=== PATIENT | female | born 1935 | race Caucasian/White ===

== ENCOUNTER 2017-08-29 11:01 | Outpatient (CLI) | payer MEDICARE | END 2017-08-29 11:02 | disposition home or self-care (01) | LOC: BICMAMMO 11:01 | PROVIDERS: ATTEND Obstetrics & Gynecology | DX: Z12.31 Encounter for screening mammogram for malignant neoplasm of breast (principal) | CPT/HCPCS: 77063; 77067 ==

== ENCOUNTER 2018-01-20 08:43 | Outpatient (CLI) | payer MEDICARE ==
--- NOTE | 2018-01-20 11:11 | RAD ---
FOUR VIEWS LUMBAR SPINE: INDICATION: History of post laminectomy syndrome. COMPARISON: None. FINDINGS: There is a 1.2 cm stone overlying the mid to inferior pole of the left kidney. There are laminectomy changes at L5 and L4. There is levoscoliosis of the lumbar spine. There is anterolisthesis of L4 o n L5. There is advanced degenerative disk disease at L5-S1. There is moderate facet osteoarthrosis at L4-5 and L5-S1. There are prominent vascular calcifications involving the abdominal aorta. Ther e is some reduction in the anterolisthesis of L4 and L5 with extension. This does not appear to acce ntuate with flexion. IMPRESSION: 1. Moderate spondylosis of the cervical spine. Degenerative levoscoliosis of the lumbar spine. 2. Grade I anterolisthesis of L4 and L5 that appears slightly reduced with extension but is not acce ntuated with flexion. 3. Left nephrolithiasis. 4. Postoperative change. POS: [facility]
== END 2018-01-20 08:44 | disposition home or self-care (01) ==
LOC: RAD 08:43
PROVIDERS: ATTEND Nurse Practitioner Family
DX: M47.816 Spondylosis without myelopathy or radiculopathy, lumbar region (principal); M96.1 Postlaminectomy syndrome, not elsewhere classified; M43.16 Spondylolisthesis, lumbar region; M41.9 Scoliosis, unspecified; N20.0 Calculus of kidney; Z98.890 Other specified postprocedural states
CPT/HCPCS: 72110

== ENCOUNTER 2018-02-06 07:48 | Outpatient (CLI) | payer MEDICARE ==
--- NOTE | 2018-02-06 08:43 | RAD ---
LUMBAR SPINE THREE VIEWS: HISTORY: Low back pain. Prior surgery. COMPARISON: 01/20/2018 FINDINGS: Lateral views include neutral, flexion, and extension views. Vertebral body heights are maintained. Minimal retrolisthesis and disk space narrowing are present at the L1-L2 level with gas disk phenome non. Disk space narrowing and minimal degenerative retrolisthesis at the L2-L3 level. Disk space na rrowing at the L3-L4 level. There is 0.4 cm spondylolisthesis at the L4-L5 level with disk space narrowing. There is disk space narrowing and gas disk phenomenon at the lumbosacral junction. No abnormal translational motion upon flexion or extension. Prominent osteophytosis throughout the f acets. Calcification within the arterial structures. Retroperitoneal oval calcification again demon strated but not well localized on the lateral only views. IMPRESSION: 1. Prominent multilevel lumbar spondylosis. 2. Atherosclerosis. POS: [facility]
--- NOTE | 2018-02-06 09:45 | MRI ---
MRI LUMBAR SPINE WITHOUT CONTRAST: INDICATIONS: Low back pain. Lumbar radiculopathy. TECHNIQUE: Multiplanar, multisequential imaging of the lumbar spine obtained. FINDINGS: The lumbar vertebrae maintain height. Vertebral body signal is normal. There are degenerative disk changes at all levels of the lumbar spine. Loss of disk space is most pr ominent at L1-L2, L2-L3, L4-L5, and L5-S1. Slight posterior listhesis at L1-L2 and at L2-L3. Mild a nterolisthesis at L4-L5. At T11-T12, there is a posterior disk bulge central and to the left, which is inadequately evaluated on this study. Axial images are not obtained through this region. This does appear to impinge on th e conus to the left of midline. At T12-L1, no disk bulge or abnormality. At L1-L2, slight posterior listhesis. Broad-based disk bulge flattens the thecal sac. Facet hypertr ophy. Mild central canal stenosis. At L2-L3, minimal posterior listhesis. Broad-based disk bulge flattens the thecal sac. Facet hypert rophy. Mild to moderate central canal stenosis. At L3-L4, diffuse disk bulge. Facet and ligamentous hypertrophy is more pronounced. Moderate to sev ere central canal stenosis at this level. Bilateral foraminal stenosis. At L4-L5, there is mild anterolisthesis. Diffuse disk bulge. Prominent facet and ligamentous hypert rophy. Moderate to severe central canal stenosis. Bilateral foraminal stenosis secondary to listhes is and diffuse disk bulge. At L5-S1, a broad-based disk protrusion flattens the thecal sac. Prominent facet hypertrophy. Moder ate central canal stenosis. Bilateral foraminal stenosis, more prominent on the left due to diffuse disk protrusion. IMPRESSION: Central canal stenosis at multiple levels, as noted above. There is a disk bulge/protrusion at T11-T 12, impinging on the conus, to the left of midline, which is inadequately evaluated. POS: [facility]
== END 2018-02-06 07:49 | disposition home or self-care (01) ==
LOC: SCSMRI 07:48
PROVIDERS: ATTEND Nurse Practitioner Family
DX: M47.26 Other spondylosis with radiculopathy, lumbar region (principal); I70.90 Unspecified atherosclerosis; M48.061 Spinal stenosis, lumbar region without neurogenic claudication
CPT/HCPCS: 72100; 72148

== ENCOUNTER 2018-06-11 11:03 | Outpatient (CLI) | payer MEDICARE ==
--- NOTE | 2018-06-11 11:34 | RAD ---
TWO VIEWS RIGHT HIP: Comparison: None. History: Right hip pain. FINDINGS: Two views of the right hip shows no evidence of acute fracture or dislocation. Moderate to severe paz nt space narrowing and osteophyte formation is seen in the right hip joint. There may be loose intrac apsular osseous bodies. There is no evidence of fracture or dislocation. IMPRESSION: Severe right hip osteoarthritis. POS: [facility]
--- NOTE | 2018-06-11 11:46 | RAD ---
FOUR VIEWS RIGHT KNEE: Comparison: None. History: Right knee pain. FINDINGS: Four views of the right knee shows no evidence of acute fracture or dislocation. Small tricompartment al osteophytes are seen. Calcifications are seen in the menisci which can be seen with CPPD. Dense va scular calcifications are seen posterior to the knee. IMPRESSION: Mild right knee osteoarthritis without acute osseous abnormality. POS: [facility]
== END 2018-06-11 11:04 | disposition home or self-care (01) ==
LOC: BICRAD 11:03
PROVIDERS: ATTEND Neurological Surgery
DX: M25.551 Pain in right hip (principal); M79.604 Pain in right leg; M17.11 Unilateral primary osteoarthritis, right knee; M16.11 Unilateral primary osteoarthritis, right hip

== ENCOUNTER 2020-03-22 07:20 | Outpatient (CLI) | payer MEDICARE, OTHER ==
[2020-03-22 14:35] LABS: Anion Gap 15 mmol/L (10-20); BUN (Urea Nitrogen) 21 mg/dL (9.8-20.1); Calc. Creatinine Clearance 0 mL/min (70-130); Calcium 9.5 mg/dL (7.8-10.44); Carbon Dioxide 29 mmol/L (23-31); Chloride 100 mmol/L (98-107); Estimated GFR-MDRD 62; Glucose 137 mg/dL (83-110); Potassium 4.3 mmol/L (3.5-5.1); Sodium 140 mmol/L (136-145)
[2020-03-23 11:57] LABS: SARS-CoV-2 MS2 Positive; SARS-CoV-2 N Gene Negative; SARS-CoV-2 S Gene Negative; SARS-CoV-2 by NAA Not Detected (NotDetected); SARS-CoV-2 orf1ab Negative
== END 2020-03-22 07:21 | disposition home or self-care (01) ==
LOC: LABBT 07:20
PROVIDERS: ATTEND Neurological Surgery
DX: Z01.812 Encounter for preprocedural laboratory examination (principal); M48.061 Spinal stenosis, lumbar region without neurogenic claudication; Z20.828 Contact with and (suspected) exposure to other viral communicable diseases
CPT/HCPCS: 80048; U0003; 87635

== ENCOUNTER 2020-03-25 05:48 | Day surgery (SDC) | payer MEDICARE ==
[2020-03-23 15:33] VITALS: BMI 21.4
--- NOTE | 2020-03-24 08:54 | HP ---
HISTORY OF PRESENT ILLNESS: Ms. Bruner is a very pleasant 84-year-old woman, known to us for prior evaluations of lower back pain, who returns now with severe bilateral lower extremity L5 pains and symptoms consistent with neurogenic claudication of significant concern. However, she started to develop transient urge incontinence of both bowel and bladder, though I am not sure if this is related to her spine. She has some tingling in the bilateral feet and in the same distribution as her L5 pains. She has treated with tramadol and epidural steroid injections, but does not feel this is really helping her much. We have a new MRI from [facility], which reveals severe central canal stenosis from L3-S1 as well as spondylolisthesis at L4-L5 and rather profound foraminal stenosis at L5 bilaterally secondary to both degenerative disk disease and reduction of interpedicular distance between L5 and S1. Exam is deferred for [facility] telehealth visit. PAST MEDICAL HISTORY: Significant for hypercholesterolemia, diabetes, cataracts, arthritis, asthma, seasonal allergies, hypertension, bladder issues, osteoporosis, and hypothyroidism. CURRENT MEDICATIONS: 1. Singulair. 2. Simvastatin. 3. Glyburide. 4. Lisinopril. 5. Hydrochlorothiazide. 6. Paroxetine. 7. Meloxicam. 8. Levoxyl. 9. Alprazolam. 10. Travatan. 11. Gabapentin. ALLERGIES: TO PENICILLIN, KEFLEX, RIFAMPIN, AND ADHESIVE TAPE. PAST SURGICAL HISTORY: Lumbar decompression, hysterectomy, breast biopsy, bladder dilation, nasal septoplasty, cataract resection right eye, cystocele and rectocele operation, Supa fundoplication. ASSESSMENT: Lumbar stenosis with radiculopathy and claudication. PLAN: Dr. Kennedy met with the patient, reviewed her imaging and advocated for L3-S1 decompression with an L4-S1 posterior instrumentation and fusion. He explained to the patient the risks, benefits, and alternatives to the procedure. The patient expressed understanding and elected to move forward with surgery as discussed. I do believe the patient is mentally competent and capable of making medical decisions for herself. We will move forward with surgery as planned. Job ID: [id number]
[2020-03-25] MEDS ORDERED: EPINEPHrine 1 MG/ML AMP ONE (06:10)
[2020-03-25] MEDS ORDERED: Bupivacaine 0.25% HCL 30 ML VIAL ONE (06:10)
[2020-03-25] MEDS ORDERED: Thrombin 5000 UNITS/5 ML VIAL ONE (06:10)
[2020-03-25 06:29] LABS: #Basophils 0.1 thou/uL (0.0-0.2); #Eosinphils 0.3 thou/uL (0.0-0.7); #Monocytes 0.5 thou/uL (0.11-0.59); #Neutrophils 2.4 thou/uL (1.40-6.50); %Basophils 1.7 % (0.0-1.0); %Eosinophils 6.2 % (0.0-10.0); %Lymphocytes 37.7 % (21.0-51.0); %Monocytes 10.1 % (0.0-10.0); %Neutrophils 44.4 % (42.0-75.0); Mean Corpuscular Hemoglobin 25.5 pg (27.0-31.0); Mean Corpuscular Volume 79.8 fL (78.0-98.0); Mean Platelet Volume 8.4 fL (7.4-10.4); Platelet Count 197 thou/uL (130-400); RBC Distribution Width 14.3 % (11.5-14.5); Red Blood Cell (RBC) Count 4.69 mill/uL (4.20-5.40); White Blood Cell (WBC) Count 5.3 thou/uL (4.8-10.8)
[2020-03-25] MEDS ORDERED: Famotidine/PF 20 mg/2ml Vial ONE (06:29)
[2020-03-25] MEDS ORDERED: Fentanyl 100 MCG/2 ML VIAL ONE ×3 (06:29→10:55)
[2020-03-25] MEDS ORDERED: Clindamycin/D5W 900 mg/50 ml Premix Bag ONE (06:48)
[2020-03-25] MEDS ORDERED: Levofloxacin 500 mg/D5W 100 ml Premix Bag ONE (06:48)
[2020-03-25] MEDS ORDERED: SUGAMMADEX SODIUM 200 MG/2 ML VIAL ONE (07:37)
[2020-03-25] MEDS ORDERED: Lidocaine 1% PF 5 ML VIAL ONE (13:29)
[2020-03-25] MEDS ORDERED: PROPOFOL 200 MG/20 ML VIAL ONE (13:29)
[2020-03-25] MEDS ORDERED: Dexamethasone 20 MG/5 ML VIAL ONE (13:29)
[2020-03-25] MEDS ORDERED: EPHEDRINE 25 MG/5 ML SYRINGE ONE (13:29)
[2020-03-25] MEDS ORDERED: PHENYLEPHRINE-NS 100 MCG/ML 10 ML SYRINGE ONE (13:29)
[2020-03-25] MEDS ORDERED: Ondansetron PF 4 MG/2 ML Vial ONE (13:29)
[2020-03-25] MEDS ORDERED: Metoclopramide HCl 10 MG/2 ML VIAL ONE (13:29)
[2020-03-25] MEDS ORDERED: Rocuronium Bromide 10 MG/ML (10ML VIAL) ONE (13:29)
[2020-03-25] MEDS ORDERED: Ketorolac Tromethamine 30 MG/ML VIAL ONE (13:29)
[2020-03-25] MEDS ORDERED: HYDROcodone/Acetaminophen 5/325 mg Tablet ONE (13:45)
--- NOTE | 2020-03-25 16:05 | OP ---
DATE OF PROCEDURE: 03/25/2020 BUFFING WHEEL [employer]MER [employer]IC: Abrahan Foster PA-C INDICATION: Pain. DIAGNOSES: Lumbar stenosis, lumbar radiculopathy, low back pain, and lumbar spondylolisthesis. PROCEDURES PERFORMED: Reoperation of L3-S1 decompression, L4-S1 posterolateral instrumented fusion, placement of allograft, and placement of autograft. ANESTHESIA: General. DESCRIPTION OF PROCEDURE: The patient was brought into the operating room and placed under general anesthesia. She was flipped from the supine to prone position on the operating room table. A linear incision was planned spanning L3 to the top of S1. After prepping and draping and after an appropriate preoperative pause, the incision was created. The soft tissues were swept away from midline. The self-retaining retractors were placed for optimal exposure. We dissected through scar tissue on the lower aspect of the patient's incision and once bone defects were identified, C-arm images were obtained to confirm the appropriate level. High-speed cutting drill bit was used to perform a bilateral hemilaminectomy spanning the inferior aspect of L3 to the top of S1 in order to decompress the lateral recesses. The hemilaminectomies were extended laterally to encompass the medial aspect of the facet joints at L3-4, L4-5, and L5-S1 bilaterally. After completing the decompression, pedicle screws were placed at L4, L5, and S1 bilaterally with the aid of C-arm fluoroscopy. A C-arm intraoperative 3D CT scan was then performed to confirm appropriate placement of hardware. Rods were then placed across the screw heads and then final tightened. A cross-link was placed for additional support between the L4 and L5 screws and final tightened. Allograft and autograft material were then placed in the lateral confines of the instrumentation construct. The wound was then irrigated. Hemostasis was maintained throughout. The wound was then closed in anatomic layers, and a pressure dressing was applied. There were no known procedural complications. Job ID: [id number]
--- NOTE | 2020-03-27 13:06 | EKG ---
Test Reason : PREOP Blood Pressure : / mmHG Vent. Rate : 072 BPM Atrial Rate : 072 BPM P-R Int : 148 ms QRS Dur : 076 ms QT Int : 406 ms P-R-T Axes : 080 068 069 degrees QTc Int : 444 ms Normal sinus rhythm Normal ECG No previous ECGs available Confirmed by LA RAPP MD ([id number]) on 03/27/2020 1:06:44 PM Referred By: ALVARO Confirmed By:LA RAPP MD
== END 2020-03-25 14:15 | disposition home or self-care (01) ==
LOC: SDC 05:48
PROVIDERS: ATTEND Neurological Surgery
PROC: 0SG00AJ Fusion of Lumbar Vertebral Joint with Interbody Fusion Device, Posterior Approach, Anterior Column, Open Approach (ICD-10-PCS; principal; 2020-03-25)
PROC: 0SG30AJ Fusion of Lumbosacral Joint with Interbody Fusion Device, Posterior Approach, Anterior Column, Open Approach (ICD-10-PCS; 2020-03-25)
PROC: 01NB0ZZ Release Lumbar Nerve, Open Approach (ICD-10-PCS; 2020-03-25)
DX: M51.16 Intervertebral disc disorders with radiculopathy, lumbar region (principal); M48.062 Spinal stenosis, lumbar region with neurogenic claudication; M43.16 Spondylolisthesis, lumbar region; I10 Essential (primary) hypertension; E03.9 Hypothyroidism, unspecified; E11.9 Type 2 diabetes mellitus without complications; E78.00 Pure hypercholesterolemia, unspecified; Z79.84 Long term (current) use of oral hypoglycemic drugs; Z79.899 Other long term (current) drug therapy; Z88.0 Allergy status to penicillin; Z88.1 Allergy status to other antibiotic agents; Z91.048 Other nonmedicinal substance allergy status
CPT/HCPCS: 20930; 20936; 22612; 22614; 22853 ×2; 76000; 85025; 93005; C1713 ×5; C1768; 93010; J0171; J0690; J1100; J1885; J1956; J2405; J2704; J2765; J3010; J3490; S0020; S0028

== ENCOUNTER 2021-03-08 09:38 | Outpatient (CLI) | payer MEDICARE ==
[2021-03-08 10:49] LABS: #Basophils 0.1 10x3/uL (0.0-0.2); #Eosinphils 0.4 10x3/uL (0.0-0.5); #Monocytes 0.9 10x3/uL (0.0-1.1); #Neutrophils 3.6 10x3/uL (1.5-8.4); %Eosinophils 6.2 % (0.0-6.0); %Lymphocytes 26.5 % (18.0-47.0); %Monocytes 12.8 % (0.0-10.0); %Neutrophils 52.8 % (40.0-75.0); Hemoglobin 9.1 g/dL (12.0-15.5); Mean Corpuscular HGB CONC 28.8 g/dL (32.0-36.0); Mean Corpuscular Hemoglobin 21.4 pg (27.0-33.0); Mean Corpuscular Volume 74.4 fl (81.6-98.3); Mean Platelet Volume 10.8 fl (7.4-10.4); Platelet Count 239 10x3/uL (150-450); RBC Distribution Width 22.3 % (11.5-14.5); Red Blood Cell (RBC) Count 4.25 10x6/uL (3.90-5.03); White Blood Cell (WBC) Count 6.8 10x3/uL (3.5-10.5)
[2021-03-08 11:23] LABS: ALT (SGPT) 20 U/L (8-55); AST (SGOT) 24 U/L (5-34); Albumin 4.2 g/dL (3.4-4.8); Alkaline Phosphatase 81 U/L (40-110); Anion Gap 15 mmol/L (10-20); BUN (Urea Nitrogen) 25 mg/dL (9.8-20.1); Bilirubin, Total 0.3 mg/dL (0.2-1.2); Calc. Creatinine Clearance 0 mL/min (70-130); Calcium 10.6 mg/dL (7.8-10.44); Carbon Dioxide 28 mmol/L (23-31); Chloride 102 mmol/L (98-107); Globulin 2.3 g/dL (2.4-3.5); Glucose 175 mg/dL (83-110); Potassium 4.3 mmol/L (3.5-5.1); Protein, Total 6.5 g/dL (5.8-8.1); Sodium 141 mmol/L (136-145)
[2021-03-08 11:31] LABS: Anisocytosis SLIGHT = 6-15 cells (100X) (0-5/hpf); Elliptocytes SLIGHT = 2-5 cells (100X) (0-1/hpf); Hypochromia SLIGHT = 6-15 cells (100X) (0-5/hpf); Microcytosis SLIGHT = 6-15 cells (100X) (0-5/hpf)
[2021-03-08 11:32] LABS: Platelet Morphology Comment Appears Adequate
[2021-03-08 19:29] LABS: SARS-CoV-2 PCR by NAA Not Detected (NotDetected)
== END 2021-03-08 09:39 | disposition home or self-care (01) ==
LOC: LABBT 09:38
PROVIDERS: ATTEND Internal Medicine Cardiovascular Disease
DX: Z01.818 Encounter for other preprocedural examination (principal); I35.0 Nonrheumatic aortic (valve) stenosis; Z20.822 Contact with and (suspected) exposure to COVID-19
CPT/HCPCS: 80053; 85025; 93005; U0003; U0005; 93010

== ENCOUNTER → 2021-03-13 | Day surgery (SDC) | payer MEDICARE ==
[2021-03-10 11:35] VITALS: BMI 24.6
[~2021-03-13] MED LIST: Fentanyl 100 MCG/2 ML VIAL ONE; Heparin 10,000 UNITS/ 10 ML VIAL ONE; Iopamidol 370 76% 100 ML VIAL ONE; Lidocaine 1% (PF) 30 ML VIAL ONE; Midazolam HCl 2 mg/2 ml Vial ONE; Protamine Sulfate 50 MG/5 ML VIAL ONE
[2021-03-13 07:10] LABS: Cardiac Risk 3.7 (Less than 4.5); Cholesterol 148 mg/dl (< 200 Desired); HDL Cholesterol 40 mg/dL (>60 Neg Risk); Triglycerides 422 mg/dL (Less than 150)
== END ==
LOC: CCL 05:53
PROVIDERS: ATTEND Internal Medicine Cardiovascular Disease
PROC: 4A023N6 Measurement of Cardiac Sampling and Pressure, Right Heart, Percutaneous Approach (ICD-10-PCS; principal; 2021-03-13)
PROC: B2111ZZ Fluoroscopy of Multiple Coronary Arteries using Low Osmolar Contrast (ICD-10-PCS; 2021-03-13)
DX: I35.0 Nonrheumatic aortic (valve) stenosis (principal); I25.10 Atherosclerotic heart disease of native coronary artery without angina pectoris; E11.9 Type 2 diabetes mellitus without complications; I10 Essential (primary) hypertension; E78.00 Pure hypercholesterolemia, unspecified; D50.9 Iron deficiency anemia, unspecified; E03.9 Hypothyroidism, unspecified; Z87.891 Personal history of nicotine dependence; Z79.84 Long term (current) use of oral hypoglycemic drugs; Z79.899 Other long term (current) drug therapy; Z88.0 Allergy status to penicillin; Z88.1 Allergy status to other antibiotic agents; Z91.048 Other nonmedicinal substance allergy status
CPT/HCPCS: 36415; 80061; 85347; 93460; 93567; 99152; 99153; J1644; J2001; J2250; J2720; J3010; Q9967

== ENCOUNTER 2022-01-26 11:10 | Outpatient (CLI) | payer MEDICARE ==
[2022-01-26 12:27] LABS: Hemoglobin 13.3 g/dL (12.0-15.5); Mean Corpuscular HGB CONC 33.3 g/dL (32.0-36.0); Mean Corpuscular Hemoglobin 31.7 pg (27.0-33.0); Mean Corpuscular Volume 95.2 fl (81.6-98.3); Mean Platelet Volume 10.5 fl (7.4-10.4); Platelet Count 186 10x3/uL (150-450); RBC Distribution Width 13.3 % (11.5-14.5); Red Blood Cell (RBC) Count 4.19 10x6/uL (3.90-5.03); White Blood Cell (WBC) Count 7.5 10x3/uL (3.5-10.5)
[2022-01-26 12:46] LABS: Anion Gap 14 mmol/L (10-20); BUN (Urea Nitrogen) 19 mg/dL (9.8-20.1); Calc. Creatinine Clearance 0 mL/min (70-130); Calcium 11.1 mg/dL (7.8-10.44); Carbon Dioxide 27 mmol/L (23-31); Chloride 98 mmol/L (98-107); Estimated GFR 72; Glucose 134 mg/dL (83-110); Sodium 134 mmol/L (136-145)
== END 2022-01-26 11:11 | disposition home or self-care (01) ==
LOC: LABBT 11:10
PROVIDERS: ATTEND Neurological Surgery
DX: Z01.812 Encounter for preprocedural laboratory examination (principal); M54.12 Radiculopathy, cervical region; Z20.822 Contact with and (suspected) exposure to COVID-19
CPT/HCPCS: 80048; 85027; 87811

== ENCOUNTER 2022-01-31 06:32 | Day surgery (SDC) | payer MEDICARE ==
[2022-01-29 12:05] VITALS: BMI 21.1
[2022-01-31] MEDS ORDERED: Thrombin 5000 UNITS/5 ML VIAL ONE (06:56)
[2022-01-31] MEDS ORDERED: Levofloxacin 500 mg/D5W 100 ml Premix Bag ONE (07:21)
[2022-01-31] MEDS ORDERED: Propofol 500 MG/50 ML VIAL ONE (07:29)
[2022-01-31] MEDS ORDERED: HYDROmorphone 2 MG/ML VIAL ONE (07:29)
[2022-01-31] MEDS ORDERED: SUGAMMADEX SODIUM 200 MG/2 ML VIAL ONE (07:30)
[2022-01-31] MEDS ORDERED: Clindamycin/D5W 900 mg/50 ml Premix Bag ONE (07:53)
[2022-01-31] MEDS ORDERED: Dexamethasone 20 MG/5 ML VIAL ONE (08:02)
[2022-01-31] MEDS ORDERED: PROPOFOL 200 MG/20 ML VIAL ONE (08:02)
[2022-01-31] MEDS ORDERED: Rocuronium Bromide 10 MG/ML (10ML VIAL) ONE (08:02)
[2022-01-31] MEDS ORDERED: Ondansetron PF 4 MG/2 ML Vial ONE (08:02)
[2022-01-31] MEDS ORDERED: Esmolol 100 MG/10 ML VIAL ONE (08:02)
[2022-01-31] MEDS ORDERED: Lidocaine 1% PF 5 ML VIAL ONE (08:02)
[2022-01-31] MEDS ORDERED: Phenylephrine 10 MG/ML VIAL ONE (08:02)
[2022-01-31] MEDS ORDERED: Fentanyl 100 MCG/2 ML VIAL ONE (09:49)
== END 2022-01-31 11:45 | disposition home or self-care (01) ==
LOC: SDC 06:32
PROVIDERS: ATTEND Neurological Surgery
PROC: 0RG20A0 Fusion of 2 or more Cervical Vertebral Joints with Interbody Fusion Device, Anterior Approach, Anterior Column, Open Approach (ICD-10-PCS; principal; 2022-01-31)
DX: M54.12 Radiculopathy, cervical region (principal); M48.02 Spinal stenosis, cervical region; E78.5 Hyperlipidemia, unspecified; E11.9 Type 2 diabetes mellitus without complications; M19.90 Unspecified osteoarthritis, unspecified site; J45.909 Unspecified asthma, uncomplicated; I10 Essential (primary) hypertension; Z79.82 Long term (current) use of aspirin; Z79.84 Long term (current) use of oral hypoglycemic drugs; Z79.890 Hormone replacement therapy; Z79.899 Other long term (current) drug therapy; Z88.0 Allergy status to penicillin; Z88.1 Allergy status to other antibiotic agents; Z91.048 Other nonmedicinal substance allergy status
CPT/HCPCS: 76000; 93005; 93010; C1713; J1100; J1170; J1956; J2370; J2405; J2704; J3010; J3490